=== PATIENT | female | born 2000 | race African-American/Black ===

== ENCOUNTER 2024-02-18 15:06 | Emergency (ER) | payer MEDICAID ==
[~2024-02-18] VITALS: Ht 157.5 cm; Wt 58.0 kg
[2024-02-18 16:30] VITALS: TEMP 98.9; O2SAT 96
[2024-02-18] MEDS ORDERED: P50 MT (17:49)
[2024-02-18] MEDS ORDERED: AZIT250T12 MT (17:49)
[2024-02-18] MEDS ORDERED: ALBU90AE INH (17:49)
[2024-02-18 18:35] VITALS: BP 105/75; PULSE 97; RESP 17; O2SAT 96
== END 2024-02-18 18:35 | disposition home or self-care (01) ==
LOC: ER 15:06
DX: J18.9 Pneumonia, unspecified organism (principal); J45.901 Unspecified asthma with (acute) exacerbation
CPT/HCPCS: 71045; 99283